=== PATIENT | male | born 1990 | race Caucasian/White ===

== ENCOUNTER 2016-07-16 04:47 | Emergency (ER) | payer SELFPAY ==
[~2016-07-16] VITALS: Ht 182.9 cm; Wt 93.0 kg
[~2016-07-16 04:47] MED LIST: CLIN150 PO; IBUP800T23 PO
[2016-07-16 04:50] VITALS: BP 146/85; PULSE 62; RESP 14; TEMP 97.7; O2SAT 99
[2016-07-16] MEDS ORDERED: NYSTCRE29 TOPICAL (05:07)
--- NOTE | 2016-07-16 05:11 | PD ---
HPI Chief Complaint: Skin Problem Time Seen by Provider: 05:07 Travel History International Travel<30 days: No Contact w/Intl Traveler<30days: No Traveled to known affect area: No History of Present Illness HPI 26-year-old white male presents to emergency Department with complaints of a "yeast infection". The patient states that he has irritation around the foreskin of his penis for the last week. He denies any sexual activity. No urethral discharge. No other rashes or lesions. He denies any dysuria or frequency. No nausea vomiting. No abdominal pain. PFSH Past Medical History Medical History: Denies Significant Hx Tetanus Vaccination: < 5 Years Past Surgical History Narrative Surgical Tonsils and adenoids Social History Alcohol Use: Yes Tobacco Use: Yes Allergies-Medications (Allergen,Severity, Reaction): Coded Allergies: Augmentin (Verified Allergy, Severe, Hives, 07/16/16) Ceftin (Verified Allergy, Severe, Nausea/Vomiting, 07/16/16) Penicillin (Verified Allergy, Severe, Anaphylaxis, 07/16/16) Rocephin (Verified Allergy, Severe, Generalized Rash, 07/16/16) Reported Meds & Prescriptions Reported Meds & Active Scripts Active No Active Prescriptions or Reported Medications Review of Systems Except as stated in HPI: all other systems reviewed are Neg Physical Exam Narrative GENERAL: This is a well-nourished, well-developed patient, in no apparent distress. The patient's examined with KATIE the nurse present SKIN: No rashes, ecchymoses or lesions. Warm and dry. HEAD: Atraumatic. Normocephalic. EYES: PERRL, EOMI, no discharge or injection. No scleral icterus. EARS: Clear NOSE: Nasal turbinates appear normal. THROAT: Mucosa pink and moist. Airway patent. NECK: Trachea midline. supple, moves head freely. LUNGS: Clear to auscultation. CV: Regular in rhythm. ABDOMEN: Soft nontender. EXT: No clubbing cyanosis or edema. GENITOURINARY: UNCircumcised. Testes descended bilaterally without evidence of rotation. Patient has some mild erythema and edema under the foreskin around the glans. A scant amount of serous discharge. No urethral discharge. Data Data Last Documented VS Vital Signs Date Time Temp Pulse Resp B/P Pulse Ox O2 Delivery O2 Flow Rate FiO2 07/16/16 04:50 97.7 62 14 146/85 99 Room Air MDM Medical Decision Making Medical Screen Exam Complete: Yes Emergency Medical Condition: Yes Medical Record Reviewed: Yes Differential Diagnosis MDM: High Differential diagnoses: Abscess, folliculitis, cellulitis, lymphangitis, abrasion, contact dermatitis, balanitis Narrative Course This is balanitis Diagnosis Primary Impression: Balanitis Patient Instructions: General Instructions Additional Instructions: Rest. Clear foreskin back to 3 times a day and wash with soap and water and apply medications as directed. Follow-up with a urologist or a primary care doctor in 1 week. Med/Other Pt SpecificInfo: Prescription(s) given Scripts Nystatin-Triamcinolone 100,000-0.1 Unit/Gm Cream1 Applic TOPICAL BID #15 GM Prov:Murtaza Hyde MD 07/16/16 Disposition: 01 DISCHARGE HOME Condition: Stable Reinaldo Serrano Jul 16, 2016 05:11
== END 2016-07-16 06:06 | disposition home or self-care (01) ==
LOC: NEPB 04:47
DX: N48.1 Balanitis (principal); Z72.0 Tobacco use
CPT/HCPCS: 99283